=== PATIENT | female | born 1990 | race Caucasian/White ===

== ENCOUNTER 2023-08-31 07:00 | Inpatient (IN) | payer MEDICAID ==
[2023-08-31] MEDS ORDERED: Lidocaine 1% 50 ML MDV INJECT PRN (07:27)
[2023-08-31] MEDS ORDERED: Sodium Chloride 0.9% 10 ML Syringe FLUSH PRN (07:27)
[2023-08-31] MEDS ORDERED: Nalbuphine HCl 10 MG/ 1ML Amp IVPUSH PRN (07:27)
[2023-08-31] MEDS ORDERED: Ondansetron 4 MG/2 ML SDV IVPUSH PRN (07:27)
[2023-08-31] MEDS ORDERED: Lactated Ringers 1,000 ML IV SCH (07:30)
[2023-08-31 07:58] LABS: BASOPHILS PERCENT AUTO 0.1 % (0.0-1.0); EOSINOPHILS PERCENT AUTO 0.1 % (0.0-6.0); HEMATOCRIT 37.7 % (37.0-47.0); HEMOGLOBIN 12.9 gm/dl (12.0-16.0); IMMATURE GRAN ABSOLUTE AUTO 0.13 K/mm3 (0.00-0.05); IMMATURE GRAN PERCENT AUTO 0.7 % (0.0-0.4); LYMPHOCYTES ABSOLUTE AUTO 1.3 K/mm3 (1.0-4.8); LYMPHOCYTES PERCENT AUTO 7.2 % (24.0-44.0); MEAN CORPUSCULAR HEMOGLOBIN 30.3 pg (28.0-32.0); MEAN CORPUSCULAR HGB CONC 34.2 g/dl (32.0-36.0); MEAN CORPUSCULAR VOLUME 88.5 fl (83.0-99.0); MONOCYTES ABSOLUTE AUTO 0.5 K/mm3 (0.0-0.8); MONOCYTES PERCENT AUTO 2.7 % (0.0-8.0); NEUTROPHILS PERCENT AUTO 89.2 % (41.0-71.0); PLATELET COUNT,PLT 187 K/mm3 (150-400); RED BLOOD CELL COUNT 4.26 M/mm3 (4.10-5.30); WHITE BLOOD CELL COUNT,WBC 17.87 K/mm3 (3.9-11.3)
[2023-08-31 08:34] LABS: A/G RATIO 0.6 (1-2); ALBUMIN 2.8 g/dl (3.4-5.0); ANION GAP 18.1 (5-15); BILIRUBIN TOTAL 0.2 mg/dL (0.2-1.0); BUN/CREATININE RATIO 12.9 (14-18); CALCIUM 9.1 mg/dL (8.5-10.1); CREATININE 0.7 mg/dL (0.55-1.02); EST CRCL DRUG DOSING (CG) 100.55 mL/min; POTASSIUM,K 4.1 mEq/L (3.5-5.1); PROTEIN TOTAL,TP 7.2 g/dl (6.4-8.2)
[2023-08-31] MEDS ORDERED: Sodium Chloride 0.9% 10 ML Syringe FLUSH SCH (09:00)
[2023-08-31] MEDS ORDERED: Oxytocin/Lactated Ringers 30 UNIT/500 ML BAG IV SCH (10:00)
[2023-08-31] MEDS ORDERED: Lidocaine 1% 50 ML MDV ONE (10:03)
[2023-08-31] MEDS ORDERED: Hydrocortisone Acetate 25 MG Supp RECTAL PRN (11:40)
[2023-08-31] MEDS ORDERED: Witch Hazel Medicated Pads 40/Jar TOP PRN (11:40)
[2023-08-31] MEDS ORDERED: Benzocaine/Menthol 20%-0.5% Spray 78 GM Cannister TOP PRN (11:40)
[2023-08-31 14:38] LABS: CREATININE,URINE RAND 229.6 mg/dL (30.0-125.0); PROTEIN CREATININE RATIO,URINE 387.2 mg/g (0-149); PROTEIN,URINE RANDOM 88.9 mg/dL (0.0-11.8)
[2023-08-31] MEDS: Acetaminophen 325 MG Tab PO PRN (20:10)
[2023-08-31] MEDS: Docusate Sodium 100 MG Cap PO SCH (20:10)
[2023-08-31] MEDS: Ibuprofen 600 MG Tab PO PRN (20:10)
[2023-08-31] MEDS ORDERED: Magnesium Hydroxide 400 MG/5 ML Susp 30 ML Cup PO PRN (21:00)
[2023-09-01] MEDS: Acetaminophen 325 MG Tab PO PRN (04:38)
[2023-09-01] MEDS: Docusate Sodium 100 MG Cap PO SCH (08:34)
[2023-09-01] MEDS: Ibuprofen 600 MG Tab PO PRN ×2 (08:34→14:50)
[2023-09-01] MEDS: Prenatal Multivitamin with Calcium/Folic Acid/Iron Tab PO SCH (08:34)
[2023-09-01] MEDS ORDERED: Acetaminophen 325 MG Tab PO PRN (09:54)
[2023-09-02] MEDS: Docusate Sodium 100 MG Cap PO SCH (09:09)
[2023-09-02] MEDS: Ibuprofen 600 MG Tab PO PRN (09:09)
[2023-09-02] MEDS: Prenatal Multivitamin with Calcium/Folic Acid/Iron Tab PO SCH (09:09)
== END 2023-09-02 16:30 | disposition home or self-care (01) | DRG 768 ==
LOC: JD.OBCHECK 07:00 → JD.OB 07:06 → JD.OBCHECK 09:06 → OBSVTOIN 09:55 → JD.OB 09:56
PROVIDERS: ADMIT Obstetrics & Gynecology; ATTEND Obstetrics & Gynecology
PROC: 10E0XZZ Delivery of Products of Conception, External Approach (ICD-10-PCS; principal; 2023-08-31)
PROC: 0DQR0ZZ Repair Anal Sphincter, Open Approach (ICD-10-PCS; 2023-08-31)
PROC: 3E0334Z Introduction of Serum, Toxoid and Vaccine into Peripheral Vein, Percutaneous Approach (ICD-10-PCS; 2023-09-01)
DX: O48.0 Post-term pregnancy (principal); Z37.0 Single live birth; O70.22 Third degree perineal laceration during delivery, IIIb; O26.893 Other specified pregnancy related conditions, third trimester; Z3A.40 40 weeks gestation of pregnancy; Z67.41 Type O blood, Rh negative
CPT/HCPCS: 36415; 59025; 59409; 80053; 82570; 83615; 84156; 85025; 85461; 86592; 86850; 86900; 86901; A9270-GY; J2001; J2790; J7999

== ENCOUNTER 2024-11-26 07:08 | Inpatient (IN) | payer SELFPAY ==
[2024-11-26] MEDS ORDERED: Nalbuphine 10 MG/1 ML Vial IVPUSH PRN (07:11)
[2024-11-26] MEDS ORDERED: Lidocaine 1% 50 ML MDV INJECT PRN (07:11)
[2024-11-26] MEDS ORDERED: Ondansetron 4 MG/2 ML SDV IVPUSH PRN (07:11)
[2024-11-26] MEDS ORDERED: Oxytocin/0.9 % Sodium Chloride 30 UNIT/500 ML BAG IV SCH (07:15)
[2024-11-26 07:34] LABS: BASOPHILS PERCENT AUTO 0.1 % (0.0-1.0); EOSINOPHILS PERCENT AUTO 0.2 % (0.0-6.0); HEMATOCRIT 36.9 % (37.0-47.0); HEMOGLOBIN 12.5 gm/dl (12.0-16.0); LYMPHOCYTES ABSOLUTE AUTO 1.5 K/mm3 (1.0-4.8); LYMPHOCYTES PERCENT AUTO 14.5 % (24.0-44.0); MEAN CORPUSCULAR HEMOGLOBIN 29.8 pg (28.0-32.0); MEAN CORPUSCULAR HGB CONC 33.9 g/dl (32.0-36.0); MEAN CORPUSCULAR VOLUME 87.9 fl (83.0-99.0); MEAN PLATELET VOLUME 10.3 fl (9.4-12.3); MONOCYTES ABSOLUTE AUTO 0.6 K/mm3 (0.0-0.8); MONOCYTES PERCENT AUTO 5.7 % (0.0-8.0); NEUTROPHILS PERCENT AUTO 78.5 % (41.0-71.0); PLATELET COUNT,PLT 181 K/mm3 (150-400); WHITE BLOOD CELL COUNT,WBC 10.21 K/mm3 (3.9-11.3)
[2024-11-26] MEDS ORDERED: Sodium Chloride 0.9% 10 ML Syringe FLUSH SCH (09:00)
[2024-11-26] MEDS: Oxytocin/0.9 % Sodium Chloride 30 UNIT/500 ML BAG IV SCH (10:40)
[2024-11-26] MEDS: Lactated Ringers 1,000 ML IV SCH (10:40)
[2024-11-26 13:46] LABS: ALANINE AMINOTRANSFERASE,ALT 19 U/L (14-59); ASPARTATE AMNIOTRANSFERASE,AST 17 U/L (15-37); BLOOD UREA NITROGEN,BUN 7 mg/dL (7-18); CREATININE 0.5 mg/dL (0.55-1.02); ESTIMATED GFR 128 mL/min (>60); LACTATE DEHYDROGENASE,LDH 178 U/L (81-234); URIC ACID 4.1 mg/dL (2.6-6.0)
[2024-11-26] MEDS ORDERED: fentaNYL 100 MCG/2 ML SDV EPIDUR PRN (16:02)
[2024-11-26] MEDS ORDERED: diphenhydrAMINE 50 MG/ML SDV IVPUSH PRN (16:02)
[2024-11-26] MEDS ORDERED: ePHEDrine 50 MG/ML SDV IVPUSH PRN (16:02)
[2024-11-26] MEDS: Bupivacaine/fentaNYL/NS 100 ML Bag EPIDUR PRN (16:23)
[2024-11-26 20:19] LABS: CREATININE,URINE RAND 84.6 mg/dL (30.0-125.0); PROTEIN CREATININE RATIO,URINE 127.7 mg/g (0-149); PROTEIN,URINE RANDOM 10.8 mg/dL (0.0-11.8)
[2024-11-26] MEDS ORDERED: Acetaminophen 325 MG Tab PO PRN (23:17)
[2024-11-27] MEDS: Ibuprofen 600 MG Tab PO SCH ×3 (00:35→19:53)
[2024-11-27] MEDS: Witch Hazel Medicated Pads 40/Jar TOP PRN (00:36)
[2024-11-27] MEDS: Benzocaine/Menthol 20%-0.5% Spray 78 GM Cannister TOP PRN (00:36)
[2024-11-27] MEDS ORDERED: Ibuprofen 600 MG Tab PO SCH (02:15)
[2024-11-27] MEDS: Docusate Sodium 100 MG Cap PO PRN (19:53)
[2024-11-28] MEDS ORDERED: Acetaminophen 325 MG Tab PO PRN (09:14)
[2024-11-28] MEDS ORDERED: Docusate Sodium 100 MG Cap PO PRN (09:15)
[2024-11-28] MEDS: Ibuprofen 600 MG Tab PO SCH (09:19)
== END 2024-11-28 13:38 | disposition home or self-care (01) | DRG 807 ==
LOC: JD.OB 07:08 → OBSVTOIN 22:20 → JD.OB 22:21
PROVIDERS: ADMIT Obstetrics & Gynecology; ATTEND Obstetrics & Gynecology
PROC: 10E0XZZ Delivery of Products of Conception, External Approach (ICD-10-PCS; principal; 2024-11-26)
PROC: 0KQM0ZZ Repair Perineum Muscle, Open Approach (ICD-10-PCS; principal; 2024-11-26)
PROC: 3E0R3BZ Introduction of Anesthetic Agent into Spinal Canal, Percutaneous Approach (ICD-10-PCS; principal; 2024-11-26)
PROC: 10907ZC Drainage of Amniotic Fluid, Therapeutic from Products of Conception, Via Natural or Artificial Opening (ICD-10-PCS; principal; 2024-11-26)
PROC: 3E033VJ Introduction of Other Hormone into Peripheral Vein, Percutaneous Approach (ICD-10-PCS; principal; 2024-11-26)
PROC: 30233S1 Transfusion of Nonautologous Globulin into Peripheral Vein, Percutaneous Approach (ICD-10-PCS; principal; 2024-11-26)
DX: O99.214 Obesity complicating childbirth (principal); Z37.0 Single live birth; O99.344 Other mental disorders complicating childbirth; O70.1 Second degree perineal laceration during delivery; Z3A.39 39 weeks gestation of pregnancy; Z98.890 Other specified postprocedural states; Z79.899 Other long term (current) drug therapy
CPT/HCPCS: 36415; 51701; 59025; 59409; 82565; 82570; 83615; 84156; 84450; 84460; 84520; 84550; 85025; 85461; 86592; 86850; 86870; 86900; 86901; A9270-GY; C1758; J2791; J3490; J7120; J7999